=== PATIENT | female | born 1955 | race Caucasian/White ===

== ENCOUNTER 2016-12-02 17:18 | Emergency (ER) | payer OTHER ==
[~2016-12-02] VITALS: Ht 157.5 cm; Wt 93.0 kg
[~2016-12-02 17:18] MED LIST: ALLEGRA ALLERGY60 MG PO; APAP500; AUGMENTIN 875875 MG PO; FLEXERIL; MOBIC7.5 MG PO; MUCINEX ALLERG180 MG PO; PREDNISONE 5 MG5 MG PO; PROVIL200 MG
[2016-12-02 17:19] VITALS: BP 170/81
[2016-12-02] MEDS ORDERED: PREDNISONE 20 M20 MG PO (17:36)
[2016-12-02] MEDS ORDERED: PEPCID20 MG PO (17:36)
== END 2016-12-02 18:07 | disposition home or self-care (01) ==
LOC: ER 17:18
DX: L30.9 Dermatitis, unspecified (principal); I10 Essential (primary) hypertension; Z90.710 Acquired absence of both cervix and uterus; Z91.041 Radiographic dye allergy status; Z88.2 Allergy status to sulfonamides

== ENCOUNTER → 2017-04-29 | Outpatient (CLI) | payer OTHER ==
[~2017-04-29] MED LIST changes: +PEPCID20 MG PO; +PREDNISONE 20 M20 MG PO
== END ==
LOC: RAD 03:59
DX: Z12.31 Encounter for screening mammogram for malignant neoplasm of breast (principal)

== ENCOUNTER → 2018-04-28 | Outpatient (CLI) | payer OTHER | LOC: BC 01:30 | DX: Z12.31 Encounter for screening mammogram for malignant neoplasm of breast (principal) ==

== ENCOUNTER → 2018-05-03 | Outpatient (CLI) | payer OTHER | LOC: RAD 01:17 | DX: R92.8 Other abnormal and inconclusive findings on diagnostic imaging of breast (principal) ==

== ENCOUNTER → 2019-04-04 | Outpatient (CLI) | payer OTHER | LOC: NUC 10:46 | DX: M85.88 Other specified disorders of bone density and structure, other site (principal) ==

== ENCOUNTER → 2019-05-02 | Outpatient (CLI) | payer OTHER | LOC: RAD 01:38 | DX: Z12.31 Encounter for screening mammogram for malignant neoplasm of breast (principal) ==

== ENCOUNTER → 2020-05-01 | Outpatient (CLI) | payer OTHER | LOC: BC 08:21 | PROVIDERS: ATTEND Family Medicine | DX: Z12.31 Encounter for screening mammogram for malignant neoplasm of breast (principal) ==

== ENCOUNTER → 2021-05-13 | Outpatient (CLI) | payer OTHER | LOC: BC 05-08 08:36 | PROVIDERS: ATTEND Family Medicine | DX: Z12.31 Encounter for screening mammogram for malignant neoplasm of breast (principal) ==